=== PATIENT | male | born 1975 | race Caucasian/White ===

== ENCOUNTER → 2024-12-11 | Outpatient (CLI) | payer OTHER ==
--- NOTE | 2024-12-11 22:58 | HMCSR ---
APPROVED REPORT EXAM: Two-dimensional and M-mode echocardiogram with Doppler and color Doppler. INDICATION ICD: presence of coronary angioplasty implant and graft 2D Dimensions RVDd3.2 cmLVEF(%)18.0 (>50%)LVED Vol(simp.)232.0 mL IVSd0.7 (0.7-1.1cm)FS(%)8 %LVES Vol(simp.)161.0 mL LVDd6.3 (3.8-5.6cm)LA (2D)5.4 (1.6-4.0cm)LVEF(%, simp.)31 % PWd1.2 (0.7-1.1cm)Ao Root(2D)3.0 (2.0-3.7cm)LA ESV INDEX (BP)67.47 mL/m2 LVDs5.8 (2.5-4.0cm)LVOT diam2.1 (1.8-2.4cm) IVC diam1.3 cm M-Mode Dimensions EPSS2.3 cm LA (MM)5.0 (1.6-4.0cm) Ao Root(MM)2.4 (2.0-3.7cm) Aortic Valve AoV Vmax1.4 m/[place] GR8.0 mmHgLVOT Vmax0.9 m/s AoV VTI0.2 mAo Mean GR4.2 mmHgLVOT VTI0.18 m KANDI (VMAX)2.55 cm2AVA (VTI) 2.5 cm2 Mitral Valve MV E Vmax93.1 cm/sDECEL Xbzx284 ms MV A Vmax63.7 cm/sP 1/2 T29 ms E/A ratio1.5MVA (PHT)7.5 cm2 TDI E/E' Nekfof56.0E/E' Ufupfiu38.6 Medial E' Peak V1.90 cm/sLateral E' Peak V5.60 cm/s Pulmonary Valve PV Vmax1.0 m/sPV Mean GR2.4 mmHg PV Peak GR4.2 mmHg Tricuspid Valve TR Vmax3.0 m/sRVSP34.9 mmHg TR Peak GR38.4 mmHg Left Ventricle The left ventricle is severely dilated, LVIDd 6.3cm. The mid/apical anterior lateral, inferior latera l, and inferior porter are akinetic. The basal/mid/apical anterior wall is severely hypokinetic Mild e ccentric left ventricular hypertrophy. Left ventricle systolic function is severely depressed, estima emily LVEF 15 to 20%. No obvious thrombus was seen in the left ventricle. Stage II diastolic dysfunctio n. Right Ventricle The right ventricle is dilated. Right ventricle systolic function is normal, TAPSE 16 mm. Atria The left atrium is severely dilated. The right atrium is dilated. Aortic Valve Aortic valve is trileaflet. No aortic regurgitation is present. There is no aortic valvular stenosis. Mitral Valve The mitral valve is normal in structure and function. The leaflets are mildly thickened. Moderate lawrence ral regurgitation. There is no mitral valve stenosis. Tricuspid Valve The tricuspid valve is normal in structure. Moderate tricuspid regurgitation. RVSP is 38 mmHg. Pulmonic Valve Pulmonic valve is not well visualized. Great Vessels The aortic root is normal in size. The IVC is normal in size and collapses >50% with inspiration. Pericardium No pericardial effusion. Conclusion The left atrium is severely dilated. The right atrium is dilated. The left ventricle is severely dilated, LVIDd 6.3cm. The right ventricle is dilated. Mild eccentric left ventricular hypertrophy. The mid/apical anterior lateral, inferior lateral, and inferior porter are akinetic. The basal/mid/ap ical anterior wall is severely hypokinetic Left ventricle systolic function is severely depressed, estimated LVEF 15 to 20%. Stage II diastolic dysfunction. Moderate mitral regurgitation. Moderate tricuspid regurgitation. PASP is 41 mmHg. No pericardial effusion.
== END | disposition home or self-care (01) ==
LOC: RAH 14:14 → EEVIPCON 14:30
PROVIDERS: ATTEND Physical Medicine & Rehabilitation
DX: I08.1 Rheumatic disorders of both mitral and tricuspid valves (principal); Z95.5 Presence of coronary angioplasty implant and graft
CPT/HCPCS: 93306